=== PATIENT | female | born 1965 | race American Indian/Alaskan Native ===

== ENCOUNTER 2017-10-25 12:27 | Outpatient (CLI) | payer OTHER ==
--- NOTE | 2017-10-25 13:50 | XRay Report ---
AP AND LATERAL CERVICAL SPINE: History: Cervicalgia. The vertebral bodies are well mineralized and normal in alignment and vertebral height with well preserved interspace distances. The visualized portions of the posterior elements are normal. IMPRESSION: Normal study.
== END 2017-10-25 12:28 | disposition home or self-care (01) ==
LOC: SPVIMAG 12:27
DX: M54.2 Cervicalgia (principal)
CPT/HCPCS: 72040